=== PATIENT | female | born 1985 | race American Indian/Alaskan Native ===

== ENCOUNTER 2022-01-15 00:44 | Emergency (ER) | payer MEDICAID | END 2022-01-15 02:15 | disposition left against medical advice (07) | LOC: ED 00:44 | DX: M79.601 Pain in right arm (principal); Z53.21 Procedure and treatment not carried out due to patient leaving prior to being seen by health care provider ==

== ENCOUNTER 2022-03-11 00:26 | Outpatient (CLI) | payer MEDICAID ==
[2022-03-11] MEDS ORDERED: LACTATED RINGERS 500 ML IV ONE (00:51)
[2022-03-11 01:15] VITALS: BP 101/61
[2022-03-11 02:45] LABS: Bacteria,Urine 1+ /HPF (Negative); Mucus,Urine FEW /HPF; RBC,Urine < 1.0 /HPF (0.0-6.0)
[2022-03-11 03:12] LABS: Bilirubin,Urine Negative (Negative); Blood,Urine Negative (Negative); Color,Urine Yellow (Yellow)
[2022-03-11 03:13] LABS: Urobilinogen,Urine < 2.0 mg/dL (<2.0)
[2022-03-11] MEDS ORDERED: MAGNESIUM HYDROXIDE (MOM) ORAL LIQD UDC PO ONE (03:38)
== END 2022-03-11 03:58 | disposition home or self-care (01) ==
LOC: TRG 00:26 → APU 00:27 → TRG 03:58
PROVIDERS: ATTEND Obstetrics & Gynecology
DX: O26.893 Other specified pregnancy related conditions, third trimester (principal); R10.84 Generalized abdominal pain; Z3A.32 32 weeks gestation of pregnancy
CPT/HCPCS: 36415; 59025; 81001; 82731

== ENCOUNTER 2022-04-11 05:49 | Inpatient (IN) | payer MEDICAID ==
[2022-04-05 15:23] LABS: Basophils % (Auto) 0.4 % (0.0-1.8); Eosinophils # (Auto) 0.1 K/mm3 (0.0-0.4); Eosinophils % (Auto) 1.4 % (0.0-4.3); Hematocrit 36.9 % (30.3-42.9); Hemoglobin 12.7 gm/dl (10.1-14.3); Mean Corpuscular HGB Conc 34 % (30-34); Mean Corpuscular Volume 92 fl (79-97); Monocytes # (Auto) 0.8 K/mm3 (0.0-0.8); Monocytes % (Auto) 9.4 % (0.0-7.3); Platelet Count 215 K/mm3 (140-440); Red Blood Count 4.01 M/mm3 (3.65-5.03); Red Cell Distribution Width 13.7 % (13.2-15.2)
--- NOTE | 2022-04-05 16:25 | Anesthesia Consultation ---
Anesthesia Consult and Med Hx Date of service: 04/05/22 - Airway Anesthetic Teeth Evaluation: Good ROM Head & Neck: Adequate Mental/Hyoid Distance: Adequate Mallampati Class: Class II Intubation Access Assessment: Probably Good - Pulmonary Exam CTA: Yes - Cardiac Exam Cardiac Exam: RRR - Pre-Operative Health Status ASA Pre-Surgery Classification: ASA2 Proposed Anesthetic Plan: Spinal Nerve Block: TAP BLOCK - Pre-Anesthesia Comment Pre-Anesthesia Comments: C/O OF CHEST PAIN- EKG WNL's - Pulmonary Hx Smoking: Yes Hx Asthma: No - Cardiovascular System Hx Hypertension: No - Central Nervous System Hx Seizures: No Hx Psychiatric Problems: Yes - Gastrointestinal Hx Gastroesophageal Reflux Disease: Yes - Endocrine Hx Renal Disease: No Hx Hypothyroidism: No Hx Hyperthyroidism: No - Hematic Hx Anemia: No Hx Sickle Cell Disease: No - Other Systems Hx Alcohol Use: No Hx Cancer: No Hx Obesity: No - Additional Comments Anesthesia Medical History Comments: PSH: 2004 PRIMARY CSECTION , 2006 ELECTIVE A/B, SUCTION D/C, 2008 ECTOPIC, 2014 BREAT AUGMENTATION AND SCAR REVISION. NO ANESTHESIA COMPLICATIONS.
--- NOTE | 2022-04-06 10:36 | Electrocardiograph Report ---
[facility] Test Date: 2022-04-05 Test Time: 14:14:41 Pat Name: PATIENCE MANLEY Department: Room: Gender: F Insole Taper: RAFFY : 1985 Requested By: YOUSIF PALACIO Order Number: [id number] Reading MD: Jeyson Oconnor Measurements Intervals [place] Rate: 69 P: 57 AL: 162 QRS: 35 QRSD: 79 T: 51 QT: 380 QTc: 408 Interpretive Statements Sinus rhythm No previous ECG available for comparison Electronically Signed On 04-06-2022 10:36:10 EDT by Jeyson Oconnor
[2022-04-11] MEDS ORDERED: BICITRA ORAL LIQD 30ML PO ONE (06:19)
[2022-04-11] MEDS ORDERED: METOCLOPRAMIDE 10 MG/2 ML INJ IV ONE (06:19)
[2022-04-11] MEDS ORDERED: FAMOTIDINE 20 MG/2 ML INJ IV ONE ×2 (06:19→13:19)
[2022-04-11] MEDS ORDERED: LACTATED RINGERS 1,000 ML IV SCH (06:30)
[2022-04-11 06:44] LABS: Basophils % (Auto) 0.4 % (0.0-1.8); Eosinophils # (Auto) 0.1 K/mm3 (0.0-0.4); Eosinophils % (Auto) 1.2 % (0.0-4.3); Hematocrit 34.6 % (30.3-42.9); Hemoglobin 11.8 gm/dl (10.1-14.3); Lymphocytes # (Auto) 2.9 K/mm3 (1.2-5.4); Lymphocytes % (Auto) 27.7 % (13.4-35.0); Mean Corpuscular HGB Conc 34 % (30-34); Mean Corpuscular Volume 92 fl (79-97); Monocytes # (Auto) 0.9 K/mm3 (0.0-0.8); Monocytes % (Auto) 8.6 % (0.0-7.3); Platelet Count 193 K/mm3 (140-440); Red Blood Count 3.75 M/mm3 (3.65-5.03); Red Cell Distribution Width 13.4 % (13.2-15.2)
[2022-04-11] MEDS ORDERED: OXYTOCIN DRIP 30 UNITS/500 ML BAG IV SCH ×2 (07:00→17:00)
[2022-04-11] MEDS ORDERED: ceFAZolin/Water 2 GM/20 ML 2 GM/20 ML SYRINGE IV NR (07:00)
[2022-04-11] MEDS ORDERED: ACETAMINOPHEN 500 MG TAB PO PRN (11:39)
[2022-04-11] MEDS ORDERED: ACETAMINOPHEN 500 MG TAB ONE (11:46)
[2022-04-11] MEDS ORDERED: BUTORPHANOL 2 MG/1 ML INJ IV PRN (13:00)
[2022-04-11] MEDS ORDERED: BICITRA ORAL LIQD 30ML ONE (13:18)
[2022-04-11] MEDS ORDERED: METOCLOPRAMIDE 10 MG/2 ML INJ ONE (13:18)
[2022-04-11] MEDS ORDERED: ceFAZolin/Water 2 GM/20 ML 2 GM/20 ML SYRINGE IV ONE (13:18)
[2022-04-11] MEDS ORDERED: ONDANSETRON 4 MG/2 ML INJ ONE (13:25)
[2022-04-11] MEDS ORDERED: ePHEDrine SULFATE 50 MG/1 ML INJ ONE (13:26)
[2022-04-11] MEDS ORDERED: BUPIVACAINE/PF (0.5%) 5 MG/1 ML 30 ML VIAL INFILTRATI ONE ×2 (13:28→14:57)
[2022-04-11] MEDS ORDERED: PHENYLEPHRINE/NS 1,000 MCG/10 ML SYRINGE (OR USE) IV ONE (13:30)
[2022-04-11] MEDS ORDERED: propofoL 200 MG/20 ML VIAL IV ONE ×2 (14:33→15:22)
[2022-04-11] MEDS ORDERED: SUCCINYLCHOLINE CHLORIDE 200 MG/10 ML INJ MDV ONE (14:33)
[2022-04-11] MEDS ORDERED: SODIUM CHLORIDE 0.9% 1000 ML 1,000 ML ONE ×2 (14:57→18:15)
[2022-04-11] MEDS ORDERED: fentaNYL 100 MCG/2 ML INJ ONE (15:08)
[2022-04-11] MEDS ORDERED: MIDAZOLAM 2 MG/2 ML INJ ONE (15:15)
[2022-04-11] MEDS ORDERED: IBUPROFEN 600 MG TAB PO PRN (16:27)
[2022-04-11] MEDS ORDERED: PROMETHAZINE 25 MG RECT SUPP PR PRN ×2 (16:27→16:37)
[2022-04-11] MEDS ORDERED: ONDANSETRON 4 MG/2 ML INJ IV PRN ×2 (16:27→16:37)
[2022-04-11] MEDS ORDERED: LANOLIN/ZINC/DIMETHICONE (LANSINOH) 7 GM TP PRN (16:27)
[2022-04-11] MEDS ORDERED: MORPHINE 2 MG/1 ML INJ IV PRN (16:27)
[2022-04-11] MEDS ORDERED: WITCH HAZEL/ GLYCERIN PAD TP PRN (16:27)
[2022-04-11] MEDS ORDERED: SENNOSIDES 8.6 MG TAB PO PRN (16:27)
[2022-04-11] MEDS ORDERED: KETOROLAC 30 MG/1 ML INJ IV PRN (16:27)
[2022-04-11] MEDS ORDERED: MAGNESIUM HYDROXIDE (MOM) ORAL LIQD UDC PO PRN (16:27)
[2022-04-11] MEDS ORDERED: NALOXONE 0.4 MG/1 ML INJ IV PRN ×2 (16:27→16:37)
--- NOTE | 2022-04-11 16:34 | History and Physical Report ---
History of Present Illness Date of examination: 04/11/22 Date of admission: 04/11/22 05:49 Chief complaint: here for repeat at 37 wks for iugr. History of present illness: . previous c/s. jo 05/01/22 Past History Past Medical History: no pertinent history Past Surgical History: section - Obstetrical History Expected Date of Delivery: 05/01/22 Actual Gestation: 37 Week(s) 1 Day(s) : 5 Medications and Allergies Allergies Allergy/AdvReac Type Severity Reaction Status Date / Time No Known Allergies Allergy Verified 04/11/22 06:28 Home Medications Medication Instructions Recorded Confirmed Last Taken Type Vit-Fe Fumar-FA [ 1 tab PO QDAY 04/04/22 04/04/22 Unknown History Vitamin] Review of Systems All systems: negative - Vital Signs Vital signs: Vital Signs Temp Pulse Resp BP Pulse Ox 97.9 F 81 20 116/80 97 04/05/22 14:15 04/05/22 14:15 04/05/22 14:15 04/05/22 14:15 04/05/22 14:15 Temp Pulse Resp BP Pulse Ox 97.9 F 58 L 20 124/83 98 04/05/22 14:15 04/11/22 13:19 04/05/22 14:15 04/11/22 10:59 04/11/22 13:19 - Physical Exam Lungs: Positive: Normal air movement Abdomen: Positive: normal appearance, soft, distention, normal bowel sounds Uterus: Positive: enlarged, normal contour Deep Tendon Reflex Grade: Normal +2 - Obstetrical FHR: auscultation normal Results Result Diagrams: 04/11/22 06:00 Abnormal lab results 04/11/22 Range/Units 06:00 [place] % (Auto) 8.6 H (0.0-7.3) % [place] # (Auto) 0.9 H (0.0-0.8) K/mm3 All other labs normal. Assessment and Plan - Patient Problems (1) 37 weeks gestation of Current Visit: Yes Status: Acute (2) Previous delivery affecting Current Visit: Yes Status: Acute (3) IUGR (intrauterine growth restriction) Current Visit: Yes Status: Acute Plan to address problem: for delivery.
[2022-04-11] MEDS ORDERED: HYDROmorphone 1 MG/1 ML INJ IV PRN (16:37)
[2022-04-11] MEDS ORDERED: MORPHINE 4 MG/1 ML INJ IV PRN (16:37)
[2022-04-11] MEDS ORDERED: PROMETHAZINE 25 MG TAB PO PRN (16:37)
--- NOTE | 2022-04-11 16:39 | Anesthesia Day of Surgery ---
Anesthesia Day of Surgery - Day of Surgery Patient Examined: Yes Patient H&P Reviewed: Yes Patient is NPO: Yes Beta Blockers: No Cardiac Clearance: No Pulmonary Clearance: No Pepe's Test: N/A
--- NOTE | 2022-04-11 16:39 | Anesthesia Consultation ---
Anesthesia Consult and Med Hx Date of service: 04/11/22 - Airway Anesthetic Teeth Evaluation: Good ROM Head & Neck: Adequate Mental/Hyoid Distance: Adequate Mallampati Class: Class II Intubation Access Assessment: Good - Pulmonary Exam CTA: Yes - Cardiac Exam Cardiac Exam: RRR - Pre-Operative Health Status ASA Pre-Surgery Classification: ASA2 Proposed Anesthetic Plan: General Nerve Block: Joel Tap - Pulmonary Hx Smoking: Yes Hx Asthma: No Hx Respiratory Symptoms: No SOB: No COPD: No Home Oxygen Therapy: No Hx Pneumonia: No Hx Sleep Apnea: No - Cardiovascular System Hx Hypertension: No Hx Coronary Artery Disease: No Hx Heart Attack/AMI: No Hx Angina: No Hx Percutaneous Transluminal Coronary Angioplasty (PTCA): No Hx Cardia Arrhythmia: No Hx Pacemaker: No Hx Internal Defibrillator: No Hx Valvular Heart Disease: No Hx Heart Murmur: No Hx Peripheral Vascular Disease: No - Central Nervous System Hx Neuromuscular Disorder: No Hx Seizures: No CVA: No Hx Back Pain: No Hx Psychiatric Problems: No - Gastrointestinal Hx Ulcer: No Hx Gastroesophageal Reflux Disease: Yes - Endocrine Hx Renal Disease: No Hx End Stage Renal Disease: No Hx Cirrhosis: No Hx Liver Disease: No Hx Insulin Dependent Diabetes: No Hx Non-Insulin Dependent Diabetes: No Hx Thyroid Disease: No Hx Hypothyroidism: No Hx Hyperthyroidism: No - Hematic Hx Anemia: No Hx Sickle Cell Disease: No - Other Systems Hx Alcohol Use: No Hx Substance Use: No Hx Cancer: No Hx Obesity: No - Additional Comments Anesthesia Medical History Comments: PSH: 2004 PRIMARY CSECTION , 2006 ELECTIVE A/B, SUCTION D/C, 2008 ECTOPIC, 2014 BREAT AUGMENTATION AND SCAR REVISION. NO ANESTHESIA COMPLICATIONS.
--- NOTE | 2022-04-11 16:40 | Progress Note ---
Regional Anesthesia Block - Regional Anesthesia Block Start Time: 16:12 Stop Time: 16:22 Performed By:: JARED LINDSAY Procedure: During the pre-op interview the patient agreed to and signed a consent for a TAP block for post surgical pain management. After her C/S was completed a time out was performed prior to the start of the procedure. The Trans Abdominal Plane was identified bilaterally via ultrasound. The skin was prepped bilaterally with chlorhexidine and a 22g stimuplex needle was advanced to the area between the internal oblique muscle and the trans abdominal plane. Marcaine 0.25% 30mlwas injected under ultrasound guidance on the left and right side. Negative aspiration every 5mL, There was no change in the patients heart rate or rhythm and the patient tolerated the procedure well. No apparent complications were observed.
--- NOTE | 2022-04-11 16:41 | Operative Report ---
Operative Report Operative Report: Date of surgery: April 11, 2022 Preoperative diagnoses: 37 weeks +1-day gestation, previous section, IUGR Postoperative diagnoses: The same. Plus peritoneal adhesions Operation: Lower segment transverse delivery Surgeon:Inge Lea MD Roof Service Technician: Mindi Flores CRNA Anesthesia: General anesthesia Estimated blood loss: 700 mL Complications: None Findings: There was a live baby girl in cephalic presentation. The uterus, ovaries and fallopian tubes were grossly normal. The greater omentum was broadly adherent to the parietal peritoneum on the left mid/lower abdomen. Procedure in detail: The patient was taken to the operating room. Patient was placed in the straight supine position and a Gaviria catheter was inserted. The patient was prepped in the abdomen. The drapes were placed. A timeout was done. The patient was given general anesthesia With the go ahead from the manager underwriting, a subumbilical midline incision was made. This incision was carried across the subcutaneous layer to the fascia which was also divided transversely. The recti abdominis muscle flaps were stripped from the fascia using a combination of blunt and sharp dissections. The muscles were in the midline to gain access to the anterior parietal peritoneum which was divided after excluding any underlying viscera. The access to the peritoneal cavity was then widened by manual stretching. The bladder blade was applied. The utero vesicle peritoneal flap was divided transversely allowing the bladder to be displaced caudally. The uterine incision was placed in the lower segment transversely. The uterine incision was carried to the decidual layer. The uterine incision was extended on both sides using the bandage scissors. The amniotic sac was ruptured with clear fluid. The head was lifted out of the false maternal pelvis and delivered through the incision using fundal pressure. The airways were bulb suctioned beginning with the mouth. Continuing fundal pressure combined with traction on the mandibular processes of the jaw delivered the rest of the baby. The umbilical cord was double clamped and divided. The baby was carefully transferred to the pediatric team. The placenta was manually removed from the uterine cavity. The uterine cavity was explored and was empty of any placental remnants. The uterine incision was repaired in 2 layers with #1 Vicryl. The surgical line on the uterus was hemostatic. Blood and clots were cleared from the peritoneal cavity. The anterior parietal peritoneum and the fascia were closed en bloc with looped PDS #0. The subcutaneous layer was made hemostatic using the Bovie before the skin was closed subcuticularly with 4-0 Vicryl. There were no complications. The estimated blood loss was 700 mL. All sponges and instrument counts were correct. Patient was safely transferred to the recovery room.
[2022-04-11] MEDS: MORPHINE 4 MG/1 ML INJ IV PRN ×2 (16:55→23:03)
[2022-04-11] MEDS ORDERED: fentaNYL-BUPIV 2 MCG/ML-0.125% 200 MCG/100 ML BAG EPIDURAL SCH (17:00)
[2022-04-11] MEDS: HYDROmorphone 1 MG/1 ML INJ IV PRN (18:11)
[2022-04-11] MEDS ORDERED: SODIUM CHLORIDE 0.9% 1000 ML 1,000 ML IV SCH (19:30)
[2022-04-11] MEDS ORDERED: ceFAZolin/NS 1 GM/50 ML 1 GM/50 ML BAG IV SCH (20:00)
[2022-04-11] MEDS: KETOROLAC 30 MG/1 ML INJ IV PRN (20:33)
[2022-04-11] MEDS: ceFAZolin/NS 1 GM/50 ML 1 GM/50 ML BAG IV SCH (23:04)
[2022-04-12] MEDS: KETOROLAC 30 MG/1 ML INJ IV PRN ×2 (05:16→10:29)
[2022-04-12 06:23] LABS: Hematocrit 29.8 % (30.3-42.9); Hemoglobin 10.1 gm/dl (10.1-14.3)
[2022-04-12] MEDS: ceFAZolin/NS 1 GM/50 ML 1 GM/50 ML BAG IV SCH (08:18)
[2022-04-12] MEDS: HYDROcodone/ACETAMINOPHEN 5-325 MG TAB PO PRN ×2 (12:00→18:58)
[2022-04-12] MEDS: HYDROmorphone 1 MG/1 ML INJ IV PRN (14:41)
[2022-04-12] MEDS: PRENATAL VIT27-FE FUMARATE-FOLIC ACID VIT TAB PO SCH (15:10)
[2022-04-12] MEDS: MORPHINE 4 MG/1 ML INJ IV PRN (21:55)
[2022-04-13] MEDS: HYDROcodone/ACETAMINOPHEN 5-325 MG TAB PO PRN (00:19)
--- NOTE | 2022-04-13 07:21 | Post Anesthesia Evaluation ---
- Post Anesthesia Evaluation Patient Participated: Yes Airway Patent: Yes Stable Respiratory Function: Yes Nausea/Vomiting: No Temp > 96.8F: Yes Pain Manageable: Yes Adequeate Hydration: Yes Anesthesia Complications: No Block Receding Appropriately: Yes Patient on Ventilator: No
--- NOTE | 2022-04-13 08:28 | Progress Note ---
Assessment and Plan A: re[eat section Classical incision dressing removed, incision w/o erythema, bleeding or leaking patient stable P: Continue PP care per unit protocol May discharge in 24 hr as long as stable. Subjective - Subjective Date of service: 04/13/22 Principal diagnosis: Repeat section Patient reports: appetite normal, voiding normally, pain well controlled, flatus, ambulating normally Baker: doing well, in NICU Objective - Vital Signs Latest vital signs: Vital Signs Temp Pulse Resp BP BP Pulse Ox Pulse Ox 04/13/22 06:38 20 04/13/22 01:19 20 04/13/22 00:19 20 04/13/22 00:04 98.0 F 20 134/72 04/12/22 21:55 18 04/12/22 18:58 16 04/12/22 16:05 98.1 F 70 20 119/72 99 04/12/22 14:41 16 04/12/22 12:00 16 04/12/22 11:44 98 04/12/22 08:30 98.2 F 64 20 111/68 99 Intake and Output 04/12/22 04/13/22 04/13/22 23:59 07:59 15:59 Intake Total 840 360 Balance 840 360 Intake: Oral 720 120 Intake, Free Water 120 240 Other: Total, Intake Amount 360 120 # Voids Void 1 2 - Exam Breasts: Present: normal, , tender Cardiovascular: Present: Regular rate Lungs: Present: Clear to auscultation, Normal air movement Abdomen: Present: normal appearance, soft, tenderness Uterus: Present: firm, tenderness, fundal height below umbilicus Extremities: Present: normal Deep Tendon Reflex Grade: Normal +2 Incision: Present: normal, dry, intact, dressed (removed, no bleeding noted)
--- NOTE | 2022-04-13 08:28 | Discharge Summary ---
Providers - Providers Date of Admission: 04/11/22 05:49 Date of discharge: 04/14/22 Attending physician: YOUSIF PALACIO MD [facility] Primary care physician: JOHN GILBERT MD Hospitalization Reason for admission: other (Repeat csection) Delivery: Procedure: section, vertical (repeat) Laceration: none Incision: normal, dry, intact Other procedures: none complications: none Discharge diagnosis: IUP at term delivered [place] baby: female Condition at discharge: Good Disposition: 01 HOME / SELF CARE / HOMELESS Plan - Discharge Medications Prescriptions: Ibuprofen [Motrin 800 MG tab] 800 mg PO Q8HR PRN #30 tablet PRN Reason: Pain, Moderate (4-6) HYDROcodone/APAP 5-325 [[place] 5-325 mg TAB] 1 each PO Q6H PRN #25 tablet PRN Reason: Pain, Moderate (4-6) - Provider Discharge Summary Activity: no sex for 6 weeks, no heavy lifting 4 weeks, no strenuous exercise Diet: routine Instructions: routine Additional instructions: [] Smoking cessation referral if applicable(refer to patient education folder for contact #) [] Refer to [facility] Booklet Call your doctor immediately for: * Fever > 100.5 * Heavy vaginal bleeding ( >1 pad per hour) * Severe persistent headache * Shortness of breath * Reddened, hot, painful area to leg or breast * Drainage or odor from incision. * Keep incision clean and dry at all times and follow doctor's instructions regarding bathing/showering - Follow up plan Follow up: JOHN GILBERT MD [Primary Care Provider] - 10 Days (follow up for incision check at [facility])
[2022-04-13] MEDS ORDERED: HYDROcodone/ACETAMINOPHEN 5-325 MG TAB PO PRN (10:00)
[2022-04-13] MEDS: PRENATAL VIT27-FE FUMARATE-FOLIC ACID VIT TAB PO SCH (12:34)
[2022-04-13] MEDS: IBUPROFEN 600 MG TAB PO SCH (12:35)
[2022-04-13] MEDS: IBUPROFEN 800 MG TAB PO PRN (21:57)
[2022-04-14] MEDS: IBUPROFEN 600 MG TAB PO SCH ×2 (01:56→07:24)
[2022-04-14] MEDS: HYDROcodone/ACETAMINOPHEN 5-325 MG TAB PO PRN (02:01)
[2022-04-14] MEDS: IBUPROFEN 800 MG TAB PO PRN (07:23)
[2022-04-14] MEDS: PRENATAL VIT27-FE FUMARATE-FOLIC ACID VIT TAB PO SCH (10:34)
[2022-04-14 12:28] VITALS: BP 114/59
[2022-04-14] MEDS ORDERED: medroxyPROGESTERone ACETATE 150 MG/ML SYRINGE IM SCH (13:00)
== END 2022-04-14 13:15 | disposition home or self-care (01) | DRG 765 ==
LOC: APU 05:49 → OB 17:30
PROVIDERS: ADMIT Obstetrics & Gynecology Gynecology; ATTEND Obstetrics & Gynecology
PROC: 10D00Z1 Extraction of Products of Conception, Low, Open Approach (ICD-10-PCS; principal; 2022-04-11)
PROC: 0DNU0ZZ Release Omentum, Open Approach (ICD-10-PCS; 2022-04-11)
DX: O34.211 Maternal care for low transverse scar from previous cesarean delivery (principal); O36.5930 Maternal care for other known or suspected poor fetal growth, third trimester, not applicable or unspecified; Z37.0 Single live birth; Z3A.37 37 weeks gestation of pregnancy; Z20.822 Contact with and (suspected) exposure to COVID-19; O99.62 Diseases of the digestive system complicating childbirth; K66.0 Peritoneal adhesions (postprocedural) (postinfection)
CPT/HCPCS: 36415; 85014; 85018; 85025; 86592; 86850; 86900; 86901; 88307; 93005; G0378; J3490; J0330; J0690; J1050; J1170; J1885; J2250; J2270; J2370; J2405; J2704; J2765; J3010; J7030; U0003